=== PATIENT | female | born 1990 | race African-American/Black ===

== ENCOUNTER 2017-06-01 13:37 | Inpatient (IN) | payer OTHER ==
[~2017-06-01] VITALS: Ht 177.8 cm; Wt 85.3 kg
--- NOTE | ~2017-06-01 | PN ---
Unit #: [id number] #: [id number] Patient: CINDI CHENG [id number] [facility] [address] [place] [address] [id number] MR#: [id number] NAME: CINDI CHENG ROOM: P114 Age: 27 Sex: F Admission Date: 06/01/2017 : 1990 Attending Physician: Valdo West M.D. Admitting Physician: Valdo West M.D. Primary Care Physician: Primary Care Physician Daniella VICK PROGRESS NOTES DATE 06/16/2017 DISCUSSION The patient remains seclusive to room. She continues to exhibit symptoms of severe psychosis echolalia. During today's interview, she remains profoundly psychotic, and we continue current treatment. Dictated by... Valdo West M.D. CB/dmitriy TD: 06/16/2017 14:03 JOB #: [id number] [facility] PROGRESS NOTES Page 1 of 1 X Valdo West MD X PROGRESS NOTE
--- NOTE | ~2017-06-01 | PN ---
Unit #: [id number] #: [id number] Patient: CINDI CHENG [id number] [facility] [address] [place] [address] [id number] I MR#: [id number] NAME: CINDI CHENG ROOM: 14 Age: 27 Sex: F Admission Date: 06/01/2017 : 1990 Attending Physician: Valdo West M.D. Admitting Physician: Valdo West M.D. Primary Care Physician: Primary Care Physician Daniella VICK PROGRESS NOTES DATE 06/17/2017 DISCUSSION The patient is in her room and continues to exhibit significant negative symptoms of schizophrenic illness but is today able to organize the thoughts and ask this physician when she might be ready for discharge. She states to this physician that she resides with "Daniel, her guardian." I will ask the patient's social studies teacher to see her regarding discharge planning as it is my feeling that the patient may be approaching her psychiatric baseline with aggressive pharmacotherapy. Dictated by... Valdo West M.D. CB/dmitriy TD: 06/17/2017 14:07 JOB #: [id number] [facility] PROGRESS NOTES Page 1 of 1 X Valdo West MD PROGRESS NOTE
--- NOTE | ~2017-06-01 | PN ---
Unit #: [id number] #: [id number] Patient: CINDI CHENG [id number] [facility] [address] [place] [address] [id number] MR#: [id number] NAME: CINDI CHENG ROOM: 14 Age: 26 Sex: F Admission Date: 06/01/2017 : 1990 Attending Physician: Valdo West M.D. Admitting Physician: Valdo West M.D. Primary Care Physician: Primary Care Physician Daniella VICK PROGRESS NOTES DATE 06/05/2017 DISCUSSION The patient continues to appear extremely flat and responding to internal stimuli. Her response to Invega monotherapy is thus far disappointing. We may need to consider a med washout and initiation of alternative pharmacotherapy. Dictated by... Valdo West M.D. CB/dmitriy TD: 06/05/2017 12:40 JOB #: [id number] [facility] PROGRESS NOTES Page 1 of 1 X Valdo West MD X PROGRESS NOTE
--- NOTE | ~2017-06-01 | PN ---
Unit #: [id number] #: [id number] Patient: CINDI CHENG [id number] [facility] [address] [place] [address] [id number] I MR#: [id number] NAME: CINDI CHENG ROOM: 14 Age: 27 Sex: F Admission Date: 06/01/2017 : 1990 Attending Physician: Valdo West M.D. Admitting Physician: Valdo West M.D. Primary Care Physician: Primary Care Physician Daniella VICK PROGRESS NOTES DATE 06/11/2017 DISCUSSION The patient remains extremely disorganized and continues to appear to be responding to internal stimuli. I will increase her Abilify dose to 20 mg today. Dictated by... Valdo West M.D. CB/yara TD: 06/11/2017 15:13 JOB #: [id number] [facility] PROGRESS NOTES Page 1 of 1 X Valdo West MD X PROGRESS NOTE
--- NOTE | ~2017-06-01 | PN ---
Unit #: [id number] #: [id number] Patient: CINDI CHENG [id number] [facility] [address] [place] [address] [id number] I MR#: [id number] NAME: CINDI CHENG ROOM: 14 Age: 26 Sex: F Admission Date: 06/01/2017 : 1990 Attending Physician: Valdo West M.D. Admitting Physician: Valdo West M.D. Primary Care Physician: Primary Care Physician Daniella VICK PROGRESS NOTES DATE 06/10/2017 DISCUSSION The patient remains floridly psychotic. She is in her room today requesting that this physician "send her a lot of boys because I am not ." Further upward titration of Abilify will almost certainly be necessary. We continue current treatment for the time being, however. Dictated by... Valdo West M.D. CB/bzg TD: 06/10/2017 14:51 JOB #: [id number] [facility] PROGRESS NOTES Page 1 of 1 X Valdo West MD PROGRESS NOTE
--- NOTE | ~2017-06-01 | PN ---
Unit #: [id number] #: [id number] Patient: ICNDI CHENG [id number] [facility] [address] [place] [address] [id number] I MR#: [id number] NAME: CINDI CHENG ROOM: 14 Age: 26 Sex: F Admission Date: 06/01/2017 : 1990 Attending Physician: Valdo West M.D. Admitting Physician: Valdo West M.D. Primary Care Physician: Primary Care Physician Daniella VICK PROGRESS NOTES DATE 06/04/2017 DISCUSSION The patient remains floridly psychotic. She is seclusive to room and is noted to be responding to internal stimuli. This in spite of aggressively dosed Invega. Consideration may need to be given to a medication change as the patient seems to be showing little if any response whatsoever to initiation of high dose of this medication. Dictated by... Valdo West M.D. CB/yara TD: 06/04/2017 15:38 JOB #: [id number] [facility] PROGRESS NOTES Page 1 of 1 X Valdo West MD X PROGRESS NOTE
--- NOTE | ~2017-06-01 | PN ---
Unit #: [id number] #: [id number] Patient: CINDI CHENG [id number] [facility] [address] [place] [address] [id number] I MR#: [id number] NAME: CINDI CHENG ROOM: P122 Age: 26 Sex: F Admission Date: 06/01/2017 : 1990 Attending Physician: Valdo West M.D. Admitting Physician: Valdo West M.D. Primary Care Physician: Primary Care Physician Daniella VICK PROGRESS NOTES DATE 06/03/2017 DISCUSSION The patient remains seclusive to room and continues to exhibit response to internal stimuli, speaking loudly to herself as she walks down the [place]. She continues to exhibit some disorganization of thought. We are continuing her current trial of an increased dose of Invega oral formulation in anticipation of possible initiation of Invega Sustenna. Dictated by... Valdo West M.D. CB/yara TD: 06/03/2017 15:08 JOB #: [id number] [facility] PROGRESS NOTES Page 1 of 1 X Valdo West MD X PROGRESS NOTE
--- NOTE | ~2017-06-01 | PN ---
Unit #: [id number] #: [id number] Patient: CINDI CHENG [id number] [facility] [address] [place] [address] [id number] I MR#: [id number] NAME: CINDI CHENG ROOM: 14 Age: 27 Sex: F Admission Date: 06/01/2017 : 1990 Attending Physician: Valdo West M.D. Admitting Physician: Valdo West M.D. 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 She is extremely flat with impoverishment of speech but as noted previously maybe at or near a rather meager psychiatric baseline. We continue to await word from the patient's mother regarding her progress or lack of. Dictated by... Valdo West M.D. CB/wyatt TD: 06/20/2017 22:26 JOB #: [id number] [facility] PROGRESS NOTES Page 1 of 1 X Valdo West MD X PROGRESS NOTE
--- NOTE | ~2017-06-01 | PN ---
Unit #: [id number] #: [id number] Patient: CINDI CHENG [id number] [facility] [address] [place] [address] [id number] I MR#: [id number] NAME: CINDI CHENG ROOM: P114 Age: 27 Sex: F Admission Date: 06/01/2017 : 1990 Attending Physician: Valdo West M.D. Admitting Physician: Valdo West M.D. Primary Care Physician: Primary Care Physician Daniella VICK PROGRESS NOTES DATE 06/21/2017 DISCUSSION The patient remains seclusive to room but appears to be at or near her psychiatric baseline. We have been in contact with the patient's mother who is in agreement with the plan for probable a.m. discharge with [facility]. The patient is in agreement with this plan. Dictated by... Valdo West M.D. CB/wyatt TD: 06/21/2017 22:38 JOB #: [id number] [facility] PROGRESS NOTES Page 1 of 1 X Valdo West MD PROGRESS NOTE
--- NOTE | ~2017-06-01 | PN ---
Unit #: [id number] #: [id number] Patient: CINDI CHENG [id number] [facility] [address] [place] [address] [id number] I MR#: [id number] NAME: CINDI CHENG ROOM: 14 Age: 26 Sex: F Admission Date: 06/01/2017 : 1990 Attending Physician: Valdo West M.D. Admitting Physician: Valdo West M.D. Primary Care Physician: Primary Care Physician Daniella VICK PROGRESS NOTES DATE OF SERVICE 06/07/2017 DISCUSSION The patient's psychosis persists essentially unabated from admission. I will go ahead and begin downward titration of paliperidone and instead begin the patient on aripiprazole in hopes of addressing her ongoing psychosis. Dictated by... Valdo West M.D. CB/wyatt TD: 06/07/2017 21:44 JOB #: [id number] [facility] PROGRESS NOTES Page 1 of 1 X Valdo West MD PROGRESS NOTE
--- NOTE | ~2017-06-01 | PN ---
Unit #: [id number] #: [id number] Patient: CINDI CHENG [id number] [facility] [address] [place] [address] [id number] I MR#: [id number] NAME: CINDI CHENG ROOM: 14 Age: 27 Sex: F Admission Date: 06/01/2017 : 1990 Attending Physician: Valdo West M.D. Admitting Physician: Valdo West M.D. Primary Care Physician: Primary Care Physician Daniella VICK PROGRESS NOTES DATE 06/12/2017 DISCUSSION The patient remains floridly psychotic but is perhaps a bit improved. I will today increase the patient's Ativan dose to 1 mg twice daily and continues this in addition to aggressively dosed Abilify. Dictated by... Valdo West M.D. CB/dmitriy TD: 06/12/2017 13:22 JOB #: [id number] [facility] PROGRESS NOTES Page 1 of 1 X Valdo West MD X PROGRESS NOTE
--- NOTE | ~2017-06-01 | PN ---
Unit #: [id number] #: [id number] Patient: CINDI CHENG [id number] [facility] [address] [place] [address] [id number] I MR#: [id number] NAME: CINDI CHENG ROOM: 14 Age: 27 Sex: F Admission Date: 06/01/2017 : 1990 Attending Physician: Valdo West M.D. Admitting Physician: Valdo West M.D. Primary Care Physician: Primary Care Physician Daniella ZUNIGA NOTES DATE 06/19/2017 DISCUSSION The patient continues to appear to be responding to internal stimuli and continues to exhibit significant negative symptoms of schizophrenia. The patient reports today that she lives with her mother. She had previously stated that she lives alone, but she does apparently live with her mother. The patient states that she has not spoke with her mother since she was admitted to the hospital. The patient's social secretary has been attempting to reach the patient's mother without success. It is uncertain as to whether the patient is perhaps at or near her baseline, but if this is in fact her baseline, it is certainly a meager one. Dictated by... Valdo West M.D. CB/dmitriy TD: 06/19/2017 12:56 JOB #: [id number] [facility] NOTES Page 1 of 1 X Valdo West MD PROGRESS NOTE
--- NOTE | ~2017-06-01 | PN ---
Unit #: [id number] #: [id number] Patient: CINDI CHENG [id number] [facility] [address] [place] [address] [id number] MR#: [id number] NAME: CINDI CHENG ROOM: [facility] Age: 26 Sex: F Admission Date: 06/01/2017 : 1990 Attending Physician: Valdo West M.D. Admitting Physician: Valdo West M.D. Primary Care Physician: Primary Care Physician Daniella VICK PROGRESS NOTES DATE 06/06/2017 DISCUSSION The patient remains floridly psychotic responding to internal stimuli and offering very little in the way of useful history. At this point it does not appear that her Invega trial has yielding much in the way of positive result and we will probably look for cross titration of this medication with another second (1)____ an antipsychotic most likely Abilify. Dictated by... Valdo West M.D. CB/wyatt TD: 06/07/2017 00:23 JOB #: [id number] [facility] PROGRESS NOTES Page 1 of 1 X Valdo West MD X PROGRESS NOTE
--- NOTE | ~2017-06-01 | PN ---
Unit #: [id number] #: [id number] Patient: CINDI CHENG [id number] [facility] [address] [place] [address] [id number] MR#: [id number] NAME: CINDI CHENG ROOM: 14 Age: 26 Sex: F Admission Date: 06/01/2017 : 1990 Attending Physician: Valdo West M.D. Admitting Physician: Valdo West M.D. Primary Care Physician: Primary Care Physician Daniella VICK PROGRESS NOTES DATE 06/09/2017 DISCUSSION The patient has apparently had some episodes of increased lucidity, but when seen by this physician today remains seclusive to room and was noted prior to initiation of interview to be responding to internal stimuli. I will continue upward titration of Abilify, and we will continue low-dose Ativan at this point with Invega to be stopped within the next day or so. Dictated by... Valdo West M.D. CB/dmitriy TD: 06/09/2017 14:24 JOB #: [id number] [facility] PROGRESS NOTES Page 1 of 1 X Valdo West MD PROGRESS NOTE
--- NOTE | ~2017-06-01 | PN ---
Unit #: [id number] #: [id number] Patient: CINDI CHENG [id number] [facility] [address] [place] [address] [id number] I MR#: [id number] NAME: CINDI CHENG ROOM: 14 Age: 27 Sex: F Admission Date: 06/01/2017 : 1990 Attending Physician: Valdo West M.D. Admitting Physician: Valdo West M.D. Primary Care Physician: Primary Care Physician Daniella VICK PROGRESS NOTES DATE 06/18/2017 DISCUSSION The patient seems more bizarre when seen today. She is noted to be wandering into the seclusion room and mumbling to herself responding to internal stimuli. We continue aggressive pharmacotherapy but continue to await word regarding potential disposition options. Dictated by... Valdo West M.D. CB/yara TD: 06/18/2017 17:59 JOB #: [id number] [facility] PROGRESS NOTES Page 1 of 1 X Valdo West MD X PROGRESS NOTE
--- NOTE | ~2017-06-01 | PA ---
Unit #: [id number] #: [id number] Patient: CINDI CHENG [id number] [place] [address] [id number] I MR#: [id number] NAME: CINDI CHENG ROOM: [facility] Age: 26 Sex: F Admission Date: 06/01/2017 : 1990 Date of Assessment: 06/02/2017 Attending Physician: Valdo West M.D. Admitting Physician: Valdo West M.D. Primary Care Physician: Primary Care Physician No PSYCHIATRIC ASSESSMENT IDENTIFYING INFORMATION The patient is a 26-year-old chronically ill female admitted with worsening symptoms of schizophrenia. CHIEF COMPLAINT None given. INFORMANT Patient and chart, reliability good. HISTORY OF PRESENT ILLNESS The patient is a 26-year-old female who was dropped off at this facility yesterday by her mother. The patient's admission was recommended by [facility] where she is followed. The patient has apparently not been eating or taking her medications for several days, and during interview the patient was less than optimally cooperative. When seen today, the patient does answer questions, but she is so soft spoken that it was difficult to understand questions. She does state that she takes schizophrenia medicine and claims to have been compliant with her medications though the chart would seem to indicate otherwise. The patient was exhibiting bizarre behavior, laughing inappropriately, and not answering questions. She appeared to be responding to internal stimuli. When seen today, the patient seems a bit calmer but provides little in the way of useful history apart from stating that she takes "schizophrenia medicine." The patient claims to be and states that she has 2 children, neither of whom is in her custody. She denies abuse of any psychoactive substances. PAST PSYCHIATRIC HISTORY The patient denies prior psychiatric hospitalization but this is somewhat doubtful. PAST MEDICAL HISTORY The patient denies any pertinent medical history. MEDICATIONS 1. Risperdal, 2. Paliperidone. ALLERGIES None reported. FAMILY HISTORY Unit #: [id number] #: [id number] Patient: CINDI CHENG Noncontributory. SOCIAL HISTORY The patient reports that she lives alone. She claims to be and has 2 children, but this is unclear. She reports that she completed high school. MENTAL STATUS EXAMINATION Examination at this time reveals the patient to be a well-developed well-nourished female appearing her stated age. She is dressed in hospital garb. She is awake and alert, and oriented to person and place. Speech is impoverished and so soft spoken that it is frequently inaudible. The patient's mood is calm, her affect flat. The patient's intelligence cannot be adequately judged given her paucity of speech. She is denying suicidal or homicidal ideation. She does appear to be responding to internal stimuli and exhibits significant disorganization of thought. Her judgment and insight appear to be significantly impaired. ASSETS AND LIABILITIES Assets: To be assessed. Liabilities: Lack of resources. DIAGNOSTIC IMPRESSION Chronic schizophrenia undifferentiated type. TREATMENT PLAN The patient remains hospitalized for safety and stabilization. It seems unusual for the patient to be taking risperidone and paliperidone, and I will go ahead and stop the Risperdal and place the patient on paliperidone 6 mg twice daily to address symptoms. The patient looks to be a good candidate for possible initiation of Depo medication. ESTIMATED LENGTH OF STAY 7 to 10 days. Dictated by... Valdo West M.D. Lakia TD: 06/02/2017 13:47 JOB #: [id number] PSYCHIATRIC ASSESSMENT Page 1 of 1 X Valdo West MD X PSYCHIATRIC ASSESSMENT
--- NOTE | ~2017-06-01 | PN ---
Unit #: [id number] #: [id number] Patient: CINDI CHENG [id number] [facility] [address] [place] [address] [id number] MR#: [id number] NAME: CINDI CHENG ROOM: 14 Age: 27 Sex: F Admission Date: 06/01/2017 : 1990 Attending Physician: Valdo West M.D. Admitting Physician: Valdo West M.D. Primary Care Physician: Primary Care Physician Daniella VICK PROGRESS NOTES DATE 06/14/2017 DISCUSSION The patient continues to exhibit some sexual preoccupation continuing to wish to have "boys" brought to her. Further upper titration of Abilify to a maximum dose of 30 mg may be considered given her ongoing psychotic symptoms. Dictated by... Valdo West M.D. CB/wyatt TD: 06/14/2017 22:48 JOB #: [id number] [facility] PROGRESS NOTES Page 1 of 1 X Valdo West MD PROGRESS NOTE
--- NOTE | ~2017-06-01 | DS ---
Unit #: [id number] #: [id number] Patient: CINDI CHENG [id number] [facility] [address] [place] [address] [id number] I MR#: [id number] NAME: CINDI CHENG ROOM: 14 Age: 27 Sex: F Admission Date: 06/01/2017 : 1990 Discharge Date: 06/22/2017 Attending Physician: Valdo West M.D. Primary Care Physician: Primary Care Physician No DISCHARGE SUMMARY REASON FOR ADMISSION The patient is a 27-year-old female admitted with recurrent psychosis related to a history of schizophrenia. HOSPITAL COURSE The patient was admitted to the [address] [place] [address] Unit and placed on suicide precautions. She was initially continued previously prescribed medications, but it was the feeling of this physician that a combination of Invega and Risperdal made no pharmacologic sense, and this medication combination was discontinued. The patient was instead begun on Invega which was essentially titrated to a dose of 6 mg twice daily. Her response to this medication was virtually nil, and it was discontinued with the patient remaining floridly psychotic responding to internal stimuli exhibiting response to internal stimuli, negative symptoms, etc. The patient was begun on Abilify, and this medication was rapidly titrated upwards to a dose of 30 mg. The patient also was begun on low-dose lorazepam with dosage titration to 1 mg twice daily in hopes of addressing her symptoms. Aggressive pharmacotherapy yielded some improvement though the patient did maintain significant negative symptoms at the time of discharge and did continue to appear to be responding to internal stimuli. She was much less disorganized and was more active in the therapeutic milieu. Discharge was ordered on 06/22/2017 as the patient was felt to be at or near her psychiatric baseline. FINAL DIAGNOSIS Chronic paranoid schizophrenia. DISPOSITION ON DISCHARGE The patient was discharged on the following medications: 1. Ativan 1 mg twice daily for anxiety. 2. Abilify 30 mg at bedtime for psychosis. DIET AND ACTIVITY No dietary or physical restrictions placed on the patient at the time of discharge. FOLLOWUP Followup will take place through the auspices of [facility]. PROGNOSIS Fair. Unit #: [id number] #: [id number] Patient: CINDI CHENG Dictated by... Valdo West M.D. CB/dmitriy TD: 06/24/2017 12:52 JOB #: [id number] DISCHARGE SUMMARY Page 1 of 1 X Valdo West MD DISCHARGE SUMMARY
--- NOTE | ~2017-06-01 | PN ---
Unit #: [id number] #: [id number] Patient: CINDI CHENG [id number] [facility] [address] [place] [address] [id number] MR#: [id number] NAME: CINDI CHENG ROOM: 14 Age: 27 Sex: F Admission Date: 06/01/2017 : 1990 Attending Physician: Valdo West M.D. Admitting Physician: Valdo West M.D. Primary Care Physician: Primary Care Physician Daniella VICK PROGRESS NOTES DATE 06/13/2017 DISCUSSION The patient offers no new complaints today. She seems perhaps a bit clearer with the increased dose of Ativan and staff reports that they have noted a degree of improvement though the patient continues to exhibit significant negative signs of schizophrenia and continues to appear to be responding to internal stimuli. We continue current treatment. Dictated by... Valdo West M.D. CB/wytat TD: 06/14/2017 01:09 JOB #: [id number] [facility] PROGRESS NOTES Page 1 of 1 X Valdo West MD PROGRESS NOTE
--- NOTE | ~2017-06-01 | HP ---
Unit #: [id number] #: [id number] Patient: CINDI CHENG [id number] [place] [address] [id number] MR#: [id number] NAME: CINDI CHENG ROOM: P122 Age: 26 Sex: F Admission Date: 06/01/2017 : 1990 Attending Physician: Valdo West M.D. Admitting Physician: Valdo West M.D. Primary Care Physician: Primary Care Physician No HISTORY AND PHYSICAL HISTORY OF PRESENT ILLNESS Cindi is a 26-year-old admitted to [address] [place] [address] with psychotic behavior. She is a poor historian, so her history is taken from her chart. PAST MEDICAL HISTORY Morbid obesity. PAST SURGICAL HISTORY Nothing reported. ALLERGIES No known drug allergies. SOCIAL HISTORY She denies cigarettes, alcohol, or illicit drug use. FAMILY HISTORY Medically not known. REVIEW OF SYSTEMS She does not answer any questions appropriately. There are no reports of nausea, vomiting, or diarrhea. She has had no cough or increased temperature. CURRENT MEDICATIONS 1. Milk of Magnesia p.r.n. 2. Maalox p.r.n. 3. Tylenol p.r.n. PHYSICAL EXAMINATION GENERAL: Alert, morbidly obese. No apparent distress. VITAL SIGNS: Blood pressure 102/70, heart rate 82, respirations 16, and temperature 98.6. WEIGHT: 188. HEIGHT: 5 feet 10 inches. SKIN: Warm and dry without rash or lesion. HEENT: Normocephalic. TMs not viewed. Oral and nasal passages clear. Conjunctivae clear. PERRLA. EOMs intact. NECK: Supple without lymphadenopathy or thyromegaly. HEART: Regular rate and rhythm without murmur. LUNGS: Clear. ABDOMEN: Soft, nontender. : Not done. Unit #: [id number] #: [id number] Patient: CINDI CHENG EXTREMITIES: No evidence of cyanosis, clubbing or edema. Moves all without focal deficit. NEUROLOGICAL: Unable to complete extended exam. She does move all extremities without focal deficit. Hand seating and mobility technologist is equal, gait is normal. IMPRESSION Psychiatric admission. RECOMMENDATIONS PSYCHIATRIC: Per psychiatrist. MEDICAL: I see no contraindication to participate in this facility's activities. MEDICAL PROGNOSIS Good. MEDICAL CONDITION Stable. Dictated by... Tiffany Damon P.A.-C. for Maxine Moyer/dmitriy TD: 06/02/2017 15:03 JOB #: [id number] HISTORY AND PHYSICAL Page 1 of 1 X Tiffany Damon HISTORY AND PHYSICAL
--- NOTE | ~2017-06-01 | PN ---
Unit #: [id number] #: [id number] Patient: CINDI CHENG [id number] [facility] [address] [place] [address] [id number] MR#: [id number] NAME: CINDI CHENG ROOM: 14 Age: 26 Sex: F Admission Date: 06/01/2017 : 1990 Attending Physician: Valdo West M.D. Admitting Physician: Valdo West M.D. Primary Care Physician: Primary Care Physician Daniella VICK PROGRESS NOTES DATE 06/08/2017 DISCUSSION The patient remains floridly psychotic and continues to respond to internal stimuli. She is wandering the halls frequently. I am going to add Ativan 0.5 mg twice daily given her almost complete lack of response to antipsychotic medications thus far. Cross-titration of Abilify and Invega continues. Dictated by... Valdo West M.D. CB/bzg TD: 06/08/2017 14:39 JOB #: [id number] [facility] PROGRESS NOTES Page 1 of 1 X Valdo West MD X PROGRESS NOTE
--- NOTE | ~2017-06-01 | PN ---
Unit #: [id number] #: [id number] Patient: CINDI CHENG [id number] [facility] [address] [place] [address] [id number] MR#: [id number] NAME: CINDI CHENG ROOM: P114 Age: 27 Sex: F Admission Date: 06/01/2017 : 1990 Attending Physician: Valdo West M.D. Admitting Physician: Valdo West M.D. Primary Care Physician: Primary Care Physician Daniella VICK PROGRESS NOTES DATE 06/15/2017 DISCUSSION The patient remains seclusive to room and remains bizarre in her interactions with peers and staff. She continues to ask for "a boy." I will increase her Abilify to a maximum dose of 30 mg daily. Dictated by... Valdo West M.D. CB/bzg TD: 06/15/2017 14:54 JOB #: [id number] [facility] NOTES Page 1 of 1 X Valdo West MD PROGRESS NOTE
[2017-06-02 09:47] LABS: BASOPHIL% 0.3 % (0-2.5); EOSINOPHIL% 0.1 % (0.0-7.0); HEMATOCRIT 33.8 % (35.0-45.0); HEMOGLOBIN 11.2 gm/dL (12.0-16.0); LYMPHOCYTE# 1.1 X10e3 (1.0-3.5); LYMPHOCYTE% 31.4 % (17.0-45.0); MEAN CELL VOLUME 81.9 FL (83-96); MEAN CORPUSCULAR HEMOGLOBIN 27.2 PG (28-34); MEAN CORPUSCULAR HGB CONC 33.1 g/dL (30-36); MEAN PLATELET VOLUME 9.5 FL (6.5-11.5); MONOCYTE# 0.4 X10e3 (0-1.0); NEUTROPHIL# 2.1 X10e3 (1.5-7.1); NEUTROPHIL% 57.2 % (40-75); PLATELET COUNT 181 X10e3 (140-420); RED BLOOD COUNT 4.12 X10e (3.90-5.30); RED CELL DISTRIBUTION WIDTH 15.6 % (11.0-15.5); WHITE BLOOD COUNT 3.6 X10e3 (4.0-10.5)
[2017-06-02 10:01] LABS: DIFF IND NO
[2017-06-02 10:12] LABS: ALBUMIN SERUM 3.9 g/dL (3.5-5.0); BILIRUBIN,TOTAL 0.6 mg/dL (0.2-2.0); BUN/CREATININE RATIO 11.25; CALCIUM SERUM 8.6 mg/dL (8.4-10.2); CREATININE SERUM 0.8 mg/dL (0.6-1.4); PROTEIN TOTAL SERUM 6.9 g/dL (6.0-8.3)
[2017-06-12 12:38] LABS: URINE APPEARANCE CLEAR; URINE BILIRUBIN NEG (NEG); URINE BLOOD NEG (NEG); URINE COLOR YELLOW; URINE GLUCOSE NEG (NEG); URINE KETONE NEG (NEG); URINE LEUKOCYTE ESTERASE NEG (NEG); URINE NITRATE NEG (NEG); URINE PH 6.5 (5-8); URINE PROTEIN NEG (NEG); URINE SPECIFIC GRAVITY 1.016 (1.003-1.035); URINE UROBILINOGEN 0.2 MG/DL (NEG)
[2017-06-12 13:01] LABS: AMPHETAMINE NEG (NEG); BARBITURATES NEG (NEG); BENZODIAZEPINES NEG (NEG); COCAINE NEG (NEG); MARIJUANA NEG (NEG); OPIATES NEG (NEG); TRICYCLIC ANTIDEPRESSANTS NEG (NEG); U METHADONE NEG (NEG)
== END 2017-06-22 17:30 | disposition home or self-care (01) | DRG 885 ==
LOC: P1S 15:16
PROVIDERS: Specialist
DX: F20.0 Paranoid schizophrenia (principal); E66.01 Morbid (severe) obesity due to excess calories; Z68.26 Body mass index [BMI] 26.0-26.9, adult
CPT/HCPCS: 80053; 80307; 81003; 85025